=== PATIENT | female | born 1960 | race Caucasian/White ===

== ENCOUNTER 2022-12-11 14:55 | Outpatient (CLI) | payer BC | END 2022-12-11 14:56 | disposition home or self-care (01) | LOC: CSHMAMMO 14:55 | PROVIDERS: ATTEND Obstetrics & Gynecology | DX: Z12.31 Encounter for screening mammogram for malignant neoplasm of breast (principal); Z98.890 Other specified postprocedural states | CPT/HCPCS: 77063; 77067; 77080 ==